=== PATIENT | female | born 1980 | race Caucasian/White ===

== ENCOUNTER 2019-03-10 10:08 | Inpatient (IN) ==
[2019-03-10 11:04] LABS: Basophils # 0.1 K/mcL (0.0-0.2); Basophils % 0.5 %; Eosinophils # 0.3 K/mcL (0.0-0.6); Eosinophils % 1.6 %; Hematocrit 35.5 % (35.3-44.9); Hemoglobin 11.7 g/dL (11.5-15.4); Immature Granulocytes % 4.5 % (0-4); Lymphocytes # 1.9 K/mcL (0.6-4.6); Lymphocytes % 11.5 %; Mean Corpuscular Hemoglobin 25.9 pg (28.0-33.3); Mean Corpuscular Volume 78.5 fL (83.0-100.0); Mean Platelet Volume 10.2 fL (9.4-12.4); Monocytes # 1.1 K/mcL (0.0-1.3); Monocytes % 6.6 %; Neutrophils # 12.1 K/mcL (1.6-8.9); Platelet Count 321 K/mcL (140-400); Red Blood Count 4.52 M/mcL (3.82-4.97); Red Cell Distribution Width 15.6 % (11.5-14.5); Segmented Neutrophils % 75.3 %; White Blood Count 16.1 K/mcL (4.3-11.1)
[2019-03-10 11:11] LABS: Amphetamine Screen,Urine Negative ng/mL (Cutoff=1000); Barbiturate Screen,Urine Negative ng/mL (Cutoff=200); Benzodiazepines Screen,Urine Negative ng/mL (Cutoff=200); Cannabinoid Screen,Urine Negative ng/mL (Cutoff = 50); Cocaine Screen,Urine Negative ng/mL (Cutoff= 300); Creatinine,Urine 56 mg/dL; Opiate Screen,Urine Negative ng/mL (Cutoff=300); Phencyclidine Screen,Urine Negative ng/mL (Cutoff=25); Protein/Creatinine Ratio,Urine 0.18 mg/mg (0.00-0.20)
[2019-03-10] MEDS ORDERED: Oxytocin 20 units/ LR 1000 mL 20 UNIT/1,000 ML BAG IVC ONE (11:43)
[2019-03-10] MEDS ORDERED: CeFAZolin Syr 3,000MG/30 ML 3,000 MG/30 ML SYRINGE IVPB ONE (11:43)
[2019-03-10] MEDS ORDERED: Ondansetron 4 MG/2 ML VIAL IVP PRN (11:43)
[2019-03-10] MEDS ORDERED: Naloxone 0.4 MG/ML INJ IVP PRN (11:43)
[2019-03-10] MEDS ORDERED: *HR* Nalbuphine 10 MG/ML AMPUL IVP PRN (11:43)
[2019-03-10] MEDS ORDERED: Metoclopramide 10 MG/2 ML VIAL IVP ONE (11:43)
[2019-03-10] MEDS ORDERED: Famotidine 20 MG/2 ML VIAL IVP ONE (11:43)
[2019-03-10] MEDS ORDERED: 0.9 % Sodium Chloride 1,000 ML IVC SCH (11:45)
[2019-03-10] MEDS ORDERED: Oxytocin 20 units/ LR 1000 mL 20 UNIT/1,000 ML BAG IVC SCH (11:45)
[2019-03-10] MEDS ORDERED: Ringers Solution, Lactated 1,000 ML IVC SCH (11:45)
[2019-03-10] MEDS ORDERED: FLU Vac QV 19-20 (6Month+)/PF 0.5 ML SYRINGE IM ONE (12:30)
[2019-03-10 12:39] LABS: Alanine Aminotransferase 31 Units/L (7-52); Aspartate Amino Transferase 25 Units/L (13-39); BUN/Creatinine Ratio 12 (6-26); Blood Urea Nitrogen 8 mg/dL (6-20); Lactate Dehydrogenase 154 Units/L (140-271); Uric Acid 4.3 mg/dL (2.3-7.6); eGFR For African Americans > 60 (> 60); eGFR For Non-African Americans > 60 (> 60)
--- NOTE | 2019-03-10 12:55 | Discharge Summary ---
Date of Encounter: 03/10/19 Time of Encounter: 14:50 - Discharge Diagnosis (1) Gestational [-induced] hypertension without significant proteinuria, complicating childbirth Priority: Primary Status: Acute Comments: 39yo at 37+1wks GA who presents with concern for PIH. The patient has a past surgical history of a 15cm myomectomy. The patient was UTD with PNC, seen by Dr. Mcfarland, and scheduled for a primary CS on 03/14/2019 at 0800, arrival time 0600. She was seen in the office with a subtle headache and mild range BP and therefore was sent to triage for r/o PreE v. gestational HTN. She is urnetly taking singulair and baby ASA. Does report active movement. Denies n/v/d. Denies VB/LOF/contraction(s). Denies fevers/chills. Mild PIERRE, poor po hydration, has not attempted PO tylenol. No hx of HTN. CEFM: R&R NST, no decels, +accels, mod variability TOCO: QUIET EXAM: ABDOMEN: SOFT, GRAVID, NO RUQ PAIN EXTREMITIES: MILD SWELLING BILATERALLY, APPROPRIATE FOR GA GENERAL: A&O X 3, CN II-XII INTACT PELVIC: DEFERRED, GBS SWAB COLLECTED PRE-E labs: NORMAL LABS UPC <0.3 VITALS: 130s-140s/70-80s normocardic A/P: 39yo at 37+1wks GA who presents for r/o PIH, diagnosed with gHTN 1. gHTN - normotensive - mild range BP - PIERRE resolved, denies RUQPain, improved lower extremity swelling - started on labetalol 100mg BID, PID labs negative - patient DC'd to home with PreE precaution(s) and 24hr urine - patient is to return to labor and delivery for BP check and 24hr urine - patient is scheduled for pLTCS with Dr. Mcfarland on Wednesday 03/14 at 0800 - very much desires delivery with Dr. Mcfarland, we discussed at length, the recommendation for patient to be delivered between 37-38wks GA for gHTN - it IS amendable to start the patient on Labetalol 100mg BID (was normo-mild range BP without) with precaution(S) and a 24hr urine to return on 03/12 - should patient have any change in baseline status or status, she is aware to RT L&D for likely delivery 2. FWB - RNST - good FM OF NOTE: THIS PATIENT WILL BE FOR CS DUE TO 15cm MYOMECTOMY WITH RECOMMENDATION FOR CS DELIVERY BETWEEN 37-38WKS GA WITH CONCERN FOR UTERINE RUPTURE 2/2 SEROSAL-ENDOMETRIAL INVOLVEMENT OF LATE UTERINE FIBROID. DISPO: DC to home with 24hr urine, PreE precaution(s), will have BP check with 24hr urine drop off on Monday 03/12. Scheduled for 03/14 at 0800. MD MARY - Discharge Medications Prescriptions: New Labetalol HCl 100 mg PO BID 30 Days #60 tablet No Action Ibuprofen [Motrin] 600 mg PO Q6HR PRN #20 tab PRN Reason: Pain Montelukast [Singulair] 10 mg PO DAILY Aspirin 81 mg PO DAILY Ferrous Sulfate 325 mg PO BID [id number]/Iron Fumarate/FA/Dss [ 19 Tablet] 1 tab PO DAILY Synthroid 125 mg PO DAILY Home Medications: Ibuprofen [Motrin] 600 mg PO Q6HR PRN #20 tab 05/09/18 [Rx] Aspirin 81 mg PO DAILY 03/10/19 [History] Ferrous Sulfate 325 mg PO BID 03/10/19 [History] Labetalol HCl 100 mg PO BID 30 Days #60 tablet 03/10/19 [Rx] Montelukast [Singulair] 10 mg PO DAILY 03/10/19 [History] [id number]/Iron Fumarate/FA/Dss [ 19 Tablet] 1 tab PO DAILY 03/10/19 [History] Synthroid 125 mg PO DAILY 03/10/19 [History] Allergies/Adverse Reactions: Allergy/AdvReac Type Severity Reaction Status Date / Time sumatriptan [From Imitrex] Allergy Headache Verified 03/10/19 11:13 Amoxicillin AdvReac Mild Hives Verified 03/10/19 11:12 Data Procedures and tests throughout hospitalization: Laboratory Tests 03/10/19 03/10/19 03/10/19 10:41 10:41 12:01 WBC 16.1 H RBC 4.52 Hgb 11.7 Hct 35.5 MCV 78.5 L MCH 25.9 L MCHC 33.0 RDW 15.6 H Plt Count 321 MPV 10.2 Immature Gran % 4.5 H Seg Neutrophils % 75.3 Lymphocytes % 11.5 Monocytes % 6.6 Eosinophils % 1.6 Basophils % 0.5 Neutrophils # 12.1 H Lymphocytes # 1.9 Monocytes # 1.1 Eosinophils # 0.3 Basophils # 0.1 BUN Creatinine Est GFR ( Amer) Est GFR (Non-Af Amer) BUN/Creatinine Ratio Uric Acid AST ALT Lactate Dehydrogenase Urine Creatinine 56 Protein/Creatinin Ratio 0.18 Urine Total Protein 10 Urine Opiates Screen Negative Ur Buprenorphine Scrn Negative Ur Barbiturates Screen Negative Ur Phencyclidine Scrn Negative Ur Amphetamines Screen Negative U Benzodiazepines Scrn Negative Urine Cocaine Screen Negative U Marijuana (THC) Screen Negative Ur Drug Screen Interp See Below Specimen Rejected Hemolyzed 03/10/19 12:15 WBC RBC Hgb Hct MCV MCH MCHC RDW Plt Count MPV Immature Gran % Seg Neutrophils % Lymphocytes % Monocytes % Eosinophils % Basophils % Neutrophils # Lymphocytes # Monocytes # Eosinophils # Basophils # BUN 8 Creatinine 0.69 Est GFR ( Amer) > 60 Est GFR (Non-Af Amer) > 60 BUN/Creatinine Ratio 12 Uric Acid 4.3 AST 25 ALT 31 Lactate Dehydrogenase 154 Urine Creatinine Protein/Creatinin Ratio Urine Total Protein Urine Opiates Screen Ur Buprenorphine Scrn Ur Barbiturates Screen Ur Phencyclidine Scrn Ur Amphetamines Screen U Benzodiazepines Scrn Urine Cocaine Screen U Marijuana (THC) Screen Ur Drug Screen Interp Specimen Rejected Labs on day of discharge: Labs from last 24 hours 03/10/19 03/10/19 03/10/19 12:15 12:01 10:41 WBC RBC Hgb Hct MCV MCH MCHC RDW Plt Count MPV Immature Gran % Seg Neutrophils % Lymphocytes % Monocytes % Eosinophils % Basophils % Neutrophils # Lymphocytes # Monocytes # Eosinophils # Basophils # BUN 8 Creatinine 0.69 Est GFR ( Amer) > 60 Est GFR (Non-Af Amer) > 60 BUN/Creatinine Ratio 12 Uric Acid 4.3 AST 25 ALT 31 Lactate Dehydrogenase 154 Urine Creatinine 56 Protein/Creatinin Ratio 0.18 Urine Total Protein 10 Urine Opiates Screen Negative Ur Buprenorphine Scrn Negative Ur Barbiturates Screen Negative Ur Phencyclidine Scrn Negative Ur Amphetamines Screen Negative U Benzodiazepines Scrn Negative Urine Cocaine Screen Negative U Marijuana (THC) Screen Negative Ur Drug Screen Interp See Below Specimen Rejected Hemolyzed 03/10/19 10:41 WBC 16.1 H RBC 4.52 Hgb 11.7 Hct 35.5 MCV 78.5 L MCH 25.9 L MCHC 33.0 RDW 15.6 H Plt Count 321 MPV 10.2 Immature Gran % 4.5 H Seg Neutrophils % 75.3 Lymphocytes % 11.5 Monocytes % 6.6 Eosinophils % 1.6 Basophils % 0.5 Neutrophils # 12.1 H Lymphocytes # 1.9 Monocytes # 1.1 Eosinophils # 0.3 Basophils # 0.1 BUN Creatinine Est GFR ( Amer) Est GFR (Non-Af Amer) BUN/Creatinine Ratio Uric Acid AST ALT Lactate Dehydrogenase Urine Creatinine Protein/Creatinin Ratio Urine Total Protein Urine Opiates Screen Ur Buprenorphine Scrn Ur Barbiturates Screen Ur Phencyclidine Scrn Ur Amphetamines Screen U Benzodiazepines Scrn Urine Cocaine Screen U Marijuana (THC) Screen Ur Drug Screen Interp Specimen Rejected Date of admission: 03/10/19 10:08 Primary care physician: Sharon Multani CNP - Patient Status Disposition: Home, Self-Care Condition: Good Functional capacity at discharge: independent ambulation Overall status at discharge: patient is back to baseline - Discharge Instructions Follow Up With: Sharon Multani CNP [Primary Care Provider] - Additional Instructions: LABOR AND DELIVERY DISCHARGE INSTRUCTIONS Signs and Symptoms to be Reported to your Doctor Immediately: * Sudden gush, continuous or intermittent lead of fluid from vagina (note the time of gush and color of fluid) * Onset of bright red vaginal bleeding with or without pain (if you had a vaginal exam during this visit you may notice some dark red spotting. This is normal.) * Contractions that are 5 minutes apart (from the beginning of one contraction to the beginning of the next) and last 45-60 seonds; contractions that you can no longer walk, talk or laugh through. * A change in the baby's activity. This could be an increase or decrease in activity. * Severe headache which does not go away with tylenol. * Sudden swelling in the face, hands, arms and/or legs. * Upper abdominal pain - sometimes associated with heartburn or nausea and is not relieved by Maalox, Mylanta or Tums. * Kick Counts __ One hour after a meal, lay down on one side in a quiet place. Count the number of time the baby moves during an hour. If less than 6 movements, notify your physician Diet: *Force fluids, 8 to 10 tall glasses of fluid per day - may include popsicles and jello *Limit caffeine - this includes chocolate, coffee, tea, any soft drink containing such as all kenyon, Adrian Yellow and Mountain Dew Hospital Course EQUAL OPPORTUNITY ASSISTANT Time Attestation: Total time spent providing and/or coordinating discharge services: Exam - Constitutional General appearance IM: A&O X 3 - Respiratory Respiratory exam: Present: CTAB - Cardiovascular Cardiovascular exam IM: Present: RRR - VTE Reasons for not Prescribing Prophylaxis: Treatment not Indicated - Low risk for VTE
[2019-03-10 13:07] VITALS: BP 153/89
== END 2019-03-10 15:01 | disposition home or self-care (01) | DRG 833 ==
LOC: 1NENULAB → OBSVTOIN 10:08
PROVIDERS: ADMIT Advanced Practice Midwife; ATTEND Advanced Practice Midwife

== ENCOUNTER 2019-03-14 05:59 | Inpatient (IN) ==
[2019-03-14] MEDS ORDERED: Ringers Solution, Lactated 1,000 ML ONE (06:57)
[2019-03-14] MEDS ORDERED: Famotidine 20 MG/2 ML VIAL IVP ONE (06:59)
[2019-03-14] MEDS ORDERED: CeFAZolin Syr 3,000MG/30 ML 3,000 MG/30 ML SYRINGE IVPB ONE (06:59)
[2019-03-14] MEDS ORDERED: Metoclopramide 10 MG/2 ML VIAL IVP ONE (06:59)
[2019-03-14] MEDS ORDERED: Ringers Solution, Lactated 1,000 ML IVC ONE (06:59)
[2019-03-14] MEDS ORDERED: Ringers Solution, Lactated 1,000 ML IVC SCH (07:00)
[2019-03-14] MEDS ORDERED: Oxytocin 20 units/ LR 1000 mL 20 UNIT/1,000 ML BAG IVC SCH ×2 (07:00→13:36)
[2019-03-14 07:24] LABS: Basophils % 0.3 %; Eosinophils # 0.2 K/mcL (0.0-0.6); Eosinophils % 1.5 %; Hematocrit 36.6 % (35.3-44.9); Hemoglobin 11.8 g/dL (11.5-15.4); Immature Granulocytes % 2.7 % (0-4); Lymphocytes % 13.2 %; Mean Corpuscular HGB Conc 32.2 g/dL (31.6-35.5); Mean Corpuscular Hemoglobin 25.4 pg (28.0-33.3); Mean Corpuscular Volume 78.7 fL (83.0-100.0); Mean Platelet Volume 9.8 fL (9.4-12.4); Monocytes # 0.9 K/mcL (0.0-1.3); Monocytes % 5.7 %; Neutrophils # 11.6 K/mcL (1.6-8.9); Platelet Count 325 K/mcL (140-400); Red Blood Count 4.65 M/mcL (3.82-4.97); Red Cell Distribution Width 15.8 % (11.5-14.5); Segmented Neutrophils % 76.6 %; White Blood Count 15.1 K/mcL (4.3-11.1)
--- NOTE | 2019-03-14 07:58 | Anesthesia Evaluation PreOp ---
Date of Encounter: 03/14/19 Time of Encounter: 07:53 - Past History Planned Operation: Primary Csection Cardiac History: Other (PIH) Pulmonary History: Denies Any Significant HX LEADLIGHTER History: Other (history of migraines) Other Medical History: Thyroid, GERD, Other (history of myomectomy January 2018) Anesthesia History: No Prior Anesthetic Complications, Past Anesthesia (m yomectomy january 2018) : Yes Alcohol Use: occasionally Medications and Allergies Ibuprofen [Motrin] 600 mg PO Q6HR PRN #20 tab 05/09/18 [Rx] Aspirin 81 mg PO DAILY 03/10/19 [History] Ferrous Sulfate 325 mg PO BID 03/10/19 [History] Labetalol HCl 100 mg PO BID 30 Days #60 tablet 03/10/19 [Rx] Montelukast [Singulair] 10 mg PO DAILY 03/10/19 [History] [id number]/Iron Fumarate/FA/Dss [ 19 Tablet] 1 tab PO DAILY 03/10/19 [History] Synthroid 125 mg PO DAILY 03/10/19 [History] Allergy/AdvReac Type Severity Reaction Status Date / Time sumatriptan [From Imitrex] Allergy Headache Verified 03/14/19 07:08 Amoxicillin AdvReac Mild Hives Verified 03/14/19 07:08 - Meds/Allergy Pre-op Review Medications Reviewed: Yes Allergies Reviewed: Yes Beta Blockers on Current Med List: No Anesthesia Results - Labs 03/14/19 06:59 Anesthesia Exam BP 144/83 P 110 R 16 T 98.9 Height: 5'7" Weight: 127kg NPO (# of Hours): 12 Pain Scale: 0 Pain Scale Used: Numeric (1 - 10) - HEENT Pupil (Motor): Pupils equal Mallampati: II Teeth: Normal Oral Opening: Greater than 3 - LEADLIGHTER LOC: Oriented LEADLIGHTER Motor: Normal RUE, Normal LUE, Normal RLE, Normal LLE, Normal Face LEADLIGHTER Sensory: Normal: RUE, LUE, RLE, LLE, Face - Cardiac Rhythm: Regular Murmur: None JVD: No Carotid Bruit: No - Pulmonary Breath Sounds: bilateral Clear Respiratory Effort: Symmetrical Anesthesia Assess/Plan ASA Score: 2 Level of consciousness: Cooperative, Oriented, Tranquil Anesthetic Plan: Spinal Autologous Blood: Yes Monitoring Plan: Standard Monitors Recovery Plan: PACU
--- NOTE | 2019-03-14 08:17 | OB/GYN History & Physical ---
Date of Encounter: 03/14/19 Time of Encounter: 08:15 Assessment and Plan (1) 37 weeks gestation of Current visit: Yes Status: Acute Since 37 weeks 5 days gestation with history of myomectomy 15 cm fibroid. Plan is to admit for primary section is recommended for maternal medicine. She is aware operative risks and signed appropriate consent. On arrival she reports irregular contractions no bleeding or leakage of fluid. (2) with history of uterine myomectomy Current visit: Yes Status: Acute (3) Hypothyroidism affecting in third trimester Current visit: Yes Status: Acute Patient is on Synthroid will continue this postoperatively. History of Present Illness Chief complaint: Here for primary secondary to h/o myomectomy HPI: Ms. Lyons is a 39 year old female female at 37w5d presents for primary secondary to h/o myomectomy of 15 cm fibroid. Preg also complicated by hypothyroidism. She reports irregular uc's, no vb or lof. Past Med Surg Social Fam HX - Past Medical History Source: patient, old records reviewed Medical history: other Additional medical history: hypothyroidism. migraines Psychiatric history: no psych history - Past Surgical History Surgical History: other Additional surgical history: hx of uterine fibroids. Myomectomy in 2018 - Social History Smoking Status: Never smoker Smokeless Tobacco Status: No Alcohol use: rarely, occasionally Obstetrical History - Pregnancies : 1 Medications and Allergies Ibuprofen [Motrin] 600 mg PO Q6HR PRN #20 tab 05/09/18 [Rx] Aspirin 81 mg PO DAILY 03/10/19 [History] Ferrous Sulfate 325 mg PO BID 03/10/19 [History] Labetalol HCl 100 mg PO BID 30 Days #60 tablet 03/10/19 [Rx] Montelukast [Singulair] 10 mg PO DAILY 03/10/19 [History] [id number]/Iron Fumarate/FA/Dss [ 19 Tablet] 1 tab PO DAILY 03/10/19 [History] Synthroid 125 mg PO DAILY 03/10/19 [History] Allergy/AdvReac Type Severity Reaction Status Date / Time sumatriptan [From Imitrex] Allergy Headache Verified 03/14/19 07:08 Amoxicillin AdvReac Mild Hives Verified 03/14/19 07:08 Exam - Constitutional Constitutional: well developed, well nourished - HEENT HEENT: EOMI, PERRL - Neck Neck exam: full ROM - Lungs Respiratory exam: CTAB - Cardiovascular Cardiovascular exam: RRR - Abdomen Abdomen: Present: bowel sounds normal, gravid - Extremities Extremities exam: full ROM Deep Tendon Reflex Grade: 2+ Normal Results Result Diagrams: 03/14/19 06:59 Abnormal lab results WBC 15.1 K/mcL (4.3-11.1) H 03/14/19 06:59 MCV 78.7 fL (83.0-100.0) L 03/14/19 06:59 MCH 25.4 pg (28.0-33.3) L 03/14/19 06:59 RDW 15.8 % (11.5-14.5) H 03/14/19 06:59 Neutrophils # 11.6 K/mcL (1.6-8.9) H 03/14/19 06:59 All other labs normal.
[2019-03-14 08:39] LABS: Amphetamine Screen,Urine Negative ng/mL (Cutoff=1000); Barbiturate Screen,Urine Negative ng/mL (Cutoff=200); Benzodiazepines Screen,Urine Negative ng/mL (Cutoff=200); Cannabinoid Screen,Urine Negative ng/mL (Cutoff = 50); Cocaine Screen,Urine Negative ng/mL (Cutoff= 300); Opiate Screen,Urine Negative ng/mL (Cutoff=300); Phencyclidine Screen,Urine Negative ng/mL (Cutoff=25)
[2019-03-14] MEDS ORDERED: Clindamycin 900 MG/50 ML 900 MG/50 ML IV.SOLN IVPB ONE (09:09)
[2019-03-14] MEDS ORDERED: *HR* Morphine Sulfate/PF 10 MG/10 ML AMPUL ONE (09:23)
[2019-03-14] MEDS ORDERED: *HR* Phenylephrine 10 MG/ML VIAL ONE (09:40)
[2019-03-14] MEDS ORDERED: *HR* Oxytocin 10 UNIT/ML VIAL IM ONE (09:54)
[2019-03-14] MEDS ORDERED: *HR* OxyCODONE Immed Rel 5 MG TABLET PO PRN (10:45)
[2019-03-14] MEDS ORDERED: *HR* HYDROmorphone (PF) 1 MG/ML SYRINGE IVP PRN (10:45)
[2019-03-14] MEDS ORDERED: *HR* Promethazine 25 MG/ML VIAL IVP PRN (10:45)
[2019-03-14] MEDS ORDERED: Ondansetron 4 MG/2 ML VIAL IVP ONE (10:45)
--- NOTE | 2019-03-14 10:46 | Anesthesia Procedures ---
Date of Encounter: 03/14/19 Time of Encounter: 09:31 Procedures: Anesthesia - Epidural/Spinal Patient ID/Chart reviewed: Yes Patient examined: Yes OB Eval: Gestational age: 39 OB Eval: : 1 OB Eval: Hx Para: 0 OB Eval: Contractions: Non-stressed pattern Consent Obtained: Yes Supplemental Oxygen: None/Room Air Site Prep: Aseptic Technique, Sterile prep and drape, Povidone-Iodine 1% Patient position: upright Local Anesthetic: Lidocaine 1% Amount of Local Anesthetic used: 3 Interspace Used: L3-L4 Loss of Resistance (ANA): No Blood: No CSF: Yes Paresthesia: No Spinal Needle Gauge: 25 Spinal Dose: Bupivicaine 0.75% 1.6ml, morphine 300mcg Procedure: Intrathecal dose administered 1st pass in upright position. CSF flow positive on aspiration. T4 level achieved. VSS throughout. Vitals + FHT's: See anesthesia record.
--- NOTE | 2019-03-14 10:49 | OB/GYN Procedure Note ---
Section - Date of procedure: 03/14/19 Preop diagnosis: other (h/o myomectomy, desires primary ) Post-op diagnosis: same Procedure: section, primary low transverse, other (Lysis of adhesion) Surgeon: Kashif Funes Blood Loss: 750 Was there an financial sales assistant present: No Flying Ii Instructor: Frank Mckenna Anesthesia Type: Spinal section complications: none Disposition: L&D Recovery Room Specimens: Placenta - (s) Infant A Delivery Date: 03/14/19 Delivery Time: 09:54 Presentation: vertex Position: unknown Gender: Male Viability: Viable Gram Weight: 3.865 kg at 1 minute: 9 at 5 minutes: 9 Shoulder Dystocia: not encountered Placenta: spontaneous - Narrative Narrative: Patient's 39-year-old female with history of prior myomectomy and upper uterine segment of the 15 cm fibroid had been advised by maternal medicine to deliver by primary between 37 and 38 weeks. She is now 37 weeks and 5 days. section. She is aware operative risks and signed appropriate consent. Description of procedure: Patient was taken operating room where spinal anesthesia was administered. She was prepped draped in usual sterile fashion bladder was drained clear urine with Sullivan catheter. Scalpel was used to make Pfannenstiel skin incision over patient's prior incision. This was sharply taken on the rectus fascia which was incised midline. Fascial incision was extended bluntly bilaterally. Plan is developed and rectus muscle rectus fascia superiorly and distally. Peritoneum was entered bluntly. There were adhesions between the peritoneum uterine fundus these were taken down sharply. Bladder blade was placed and bladder flap was developed and lower uterine segment. Scalpel was used to make a low transverse uterine incision. She did have an anterior placenta and the was delivered through the placenta. Cord was clamped cut and was handed nurse personnel were in attendance. weight was found to be 8 lbs. 8 oz. male with Apgars of 9 at 1 minute and 9 at 5 minutes. Placenta was delivered manually without difficulty. Uterine cavity was massaged of all residual tissue. Uterus closed the Vicryl running lock stitch. Second imbricating layer was placed over the first obtain hemostasis. Breasts adhesions taken left uterine fundus there was some oozing from these adhesions therefore running lock stitch was taken with adhesions of The uterus to obtain hemostasis. The omentum and rectosigmoid colon was adherent to the uterus posteriorly. These were thin stringy adhesions and a were taken down using Bovie as well as Metzenbaum scissors. Uterus was replaced and irrigation was performed,hemostasis was ensured. Fascia was closed with 0 loop PDS. Skin edges reapproximated with 4-0 Vicryl. Steri-Strips are applied and mellissa dressing was used. All sponge and instruments counts are correct patient was taken recovery in good condition.
--- NOTE | 2019-03-14 12:18 | Anesthesia Evaluation Post Op ---
Date of Encounter: 03/14/19 Time of Encounter: 12:18 - Vital Signs Vital Signs: BP 128/84 P 93 R 16 T 99.3 - Lungs Lungs: Clear Ascult./Percussion - Airway Airway: Non-obstructed - Cardiovascular Regular Rate - Mental Status Mental Status: Alert & Oriented, Answers Appropriately - Pain Pain Scale: 2 Pain Scale used: Numeric (1 - 10) - Nausea Vomiting Nausea Vomiting: Not Present - Hydration Hydration: NPO, Sullivan catheter - Discharge PostOp Status: Transfer Patient to floor
[2019-03-14] MEDS ORDERED: Ondansetron 4 MG/2 ML VIAL IVP PRN (13:36)
[2019-03-14] MEDS ORDERED: Simethicone 80 MG TAB.CHEW PO PRN (13:36)
[2019-03-14] MEDS ORDERED: Metoclopramide 10 MG/2 ML VIAL IVP PRN (13:36)
[2019-03-14] MEDS ORDERED: Sennosides 8.6 MG TABLET PO PRN (13:36)
[2019-03-14] MEDS ORDERED: Rho Immune Globulin 1,500 UNIT SYRINGE IM ONE (13:36)
[2019-03-14] MEDS: *HR* OxyCODONE/APAP 5/325 TABLET PO PRN ×2 (14:31→19:05)
[2019-03-14] MEDS: Ringers Solution, Lactated 1,000 ML IVC SCH (19:45)
[2019-03-14 20:34] LABS: Basophils % 0.2 %; Eosinophils # 0.1 K/mcL (0.0-0.6); Eosinophils % 0.6 %; Hematocrit 27.1 % (35.3-44.9); Immature Granulocytes % 2.1 % (0-4); Lymphocytes # 1.9 K/mcL (0.6-4.6); Lymphocytes % 10.5 %; Mean Corpuscular HGB Conc 33.2 g/dL (31.6-35.5); Mean Corpuscular Hemoglobin 26.2 pg (28.0-33.3); Monocytes % 5.5 %; Neutrophils # 14.3 K/mcL (1.6-8.9); Platelet Count 273 K/mcL (140-400); Red Blood Count 3.43 M/mcL (3.82-4.97); Red Cell Distribution Width 15.5 % (11.5-14.5); Segmented Neutrophils % 81.1 %; White Blood Count 17.7 K/mcL (4.3-11.1)
[2019-03-14] MEDS: Ibuprofen 600 MG TABLET PO PRN (21:32)
--- NOTE | 2019-03-14 22:46 | Event Note ---
Date of Encounter: 03/14/19 Time of Encounter: 21:00 Called to see patient because of tachycardia. Patient is asymptomatic states has a history of tachycardia was evaluated at the beginning and the by cardiology for this they just told her she had sinus tachycardia patient's pulse is running in the 1 teens to 120s we did do a stat CBC hemoglobin is 9 gave her 500 mL bolus. She is not complaining of lightheadedness dizziness. EKG obtained and the patient just showed sinus tachycardia. Patient will be observed if continues to tachycardia we will discuss possible cardiology evaluation in a.m.
[2019-03-15] MEDS: *HR* OxyCODONE/APAP 5/325 TABLET PO PRN ×5 (00:20→23:07)
[2019-03-15] MEDS: Ringers Solution, Lactated 1,000 ML IVC SCH ×4 (00:21→17:05)
[2019-03-15] MEDS: Ibuprofen 600 MG TABLET PO PRN ×3 (04:03→19:49)
[2019-03-15 07:11] LABS: Basophils % 0.2 %; Eosinophils # 0.2 K/mcL (0.0-0.6); Eosinophils % 0.9 %; Hemoglobin 8.2 g/dL (11.5-15.4); Immature Granulocytes % 1.9 % (0-4); Lymphocytes # 1.9 K/mcL (0.6-4.6); Lymphocytes % 10.5 %; Mean Corpuscular HGB Conc 32.8 g/dL (31.6-35.5); Mean Corpuscular Hemoglobin 25.9 pg (28.0-33.3); Mean Corpuscular Volume 79.1 fL (83.0-100.0); Mean Platelet Volume 10.2 fL (9.4-12.4); Monocytes # 1.3 K/mcL (0.0-1.3); Monocytes % 7.2 %; Platelet Count 272 K/mcL (140-400); Red Blood Count 3.16 M/mcL (3.82-4.97); Red Cell Distribution Width 15.5 % (11.5-14.5); Segmented Neutrophils % 79.3 %; White Blood Count 17.6 K/mcL (4.3-11.1)
--- NOTE | 2019-03-15 09:51 | OB/GYN Progress Note ---
Date of Encounter: 03/15/19 Time of Encounter: 09:49 - Assessment and Plan (1) Status post primary low transverse section Current Visit: Yes Status: Acute Meeting day 1 milestones Continue routine care Anticipate discharge home tomorrow Subjective - Subjective Principal diagnosis: s/p PLTCS Interval history: Feeling well. Out of bed without dizziness. Some abdominal discomfort-using binder. Cramping minimal, using ibuprofen and Percocet. every 2- 3 hours. Some nipple soreness. Voiding without difficulty. Passing flatus, no BM yet. Tolerating clear liquid diet. Patient reports: appetite normal, voiding normally, pain well controlled, ambulating normally : doing well, bottle feeding Objective - Vital Signs Latest vital signs: Vital Signs Temp Pulse Pulse Resp BP Pulse Ox 03/15/19 08:09 98.3 F 111 16 123/75 99 03/15/19 04:00 98.3 F 117 14 114/74 96 03/15/19 00:20 98.9 F 99 16 127/80 98 03/14/19 20:50 99.1 F 121 13 131/84 96 03/14/19 19:32 99.0 F 121 14 132/84 96 03/14/19 16:30 98.2 F 106 14 132/85 96 03/14/19 15:30 98.2 F 117 117 14 137/87 95 03/14/19 14:30 98.3 F 110 110 14 128/81 96 03/14/19 14:00 98.3 F 116 116 14 130/82 95 03/14/19 13:30 98.5 F 103 103 16 133/89 99 Intake and Output 03/14/19 03/15/19 03/15/19 23:59 07:59 15:59 Intake Total 1900 / 1900 Output Total 550 / 625 725 / 1325 600 / 1325 Balance -550 / -625 1175 / 575 -600 / 575 Intake: IV Fluids 1000 / 1000 Lactated Ringers 1,000 ML @ 125 1000 / 1000 mls/hr IVC .Q8H [facility] Rx#: [id number] Oral 900 / 900 Output: Urine 600 / 600 Catheter 550 / 625 725 / 725 Other: Weight 123.921 kg Patient Weight 03/15/19 23:59 Weight 123.921 kg - Exam Lungs: bilateral: normal Chest: Normal S1, Normal S2 Extremities: Present: normal Abdomen: Present: normal appearance Incision: Present: normal, dry, intact, dressed Uterus: Present: normal, firm Fundal Height: 2 (below and midline) - Labs Labs: Laboratory Results - last 24 hr 03/14/19 03/15/19 20:17 06:27 WBC 17.7 H 17.6 H RBC 3.43 L 3.16 L Hgb 9.0 L D 8.2 L Hct 27.1 L 25.0 L MCV 79.0 L 79.1 L MCH 26.2 L 25.9 L MCHC 33.2 32.8 RDW 15.5 H 15.5 H Plt Count 273 272 MPV 10.0 10.2 Immature Gran % 2.1 1.9 Seg Neutrophils % 81.1 79.3 Lymphocytes % 10.5 10.5 Monocytes % 5.5 7.2 Eosinophils % 0.6 0.9 Basophils % 0.2 0.2 Neutrophils # 14.3 H 14.0 H Lymphocytes # 1.9 1.9 Monocytes # 1.0 1.3 Eosinophils # 0.1 0.2 Basophils # 0.0 0.0
[2019-03-15] MEDS: Prenatal Vit/FA 1 EACH TABLET PO SCH (10:10)
--- NOTE | 2019-03-15 15:56 | Electrocardiograph Report ---
[address] [address] Test Date: 2019-03-14 Pat Name: Fela Lyons Department: 101 Room: [facility] Gender: F Compensation Administrator: : [id number] Requested By: Terry Birmingham Order Number: [id number] Reading MD: Karen Verdugo Measurements Intervals [place] Rate: 106 P: 56 [place]: 167 QRS: 26 QRSD: 83 T: 36 QT: 308 QTc: 370 Interpretive Statements SINUS TACHYCARDIA ABNORMAL RHYTHM ECG Electronically Signed On 03-15-2019 15:55:05 EDT by Karen Verdugo
[2019-03-16] MEDS: *HR* OxyCODONE/APAP 5/325 TABLET PO PRN ×3 (02:57→13:51)
[2019-03-16] MEDS: Ibuprofen 600 MG TABLET PO PRN ×2 (02:57→11:10)
[2019-03-16 08:36] VITALS: BP 123/77
[2019-03-16] MEDS: Prenatal Vit/FA 1 EACH TABLET PO SCH (08:56)
--- NOTE | 2019-03-16 11:28 | Discharge Summary ---
Date of Encounter: 03/16/19 Time of Encounter: 11:26 - Discharge Diagnosis (1) Status post delivery Priority: Primary Status: Acute Comments: Patient meeting day two milestones. Pain well-controlled with prescribed medications. Voiding without difficulty, tolerating regular diet, bleeding light. No bowel movement yet. Anticipate discharge today OARRS report reviewed (2) Acute blood loss as cause of postoperative anemia Priority: Secondary Status: Acute Comments: Patient is asymptomatic with Hgb of 8.2 Will send home with RX for BIDWM iron (3) Breast feeding status of mother Priority: Secondary Status: Acute Comments: support as needed. Will provide breast pump prescription if needed. (4) Hypothyroidism affecting Priority: Secondary Status: Acute Comments: Continue Synthroid and follow up as scheduled Qualifiers: Trimester: unspecified trimester Qualified Code(s): O99.280 - Endocrine, nutritional and metabolic diseases complicating , unspecified trimester; E03.9 - Hypothyroidism, unspecified (5) with history of uterine myomectomy Priority: Secondary Status: Acute Comments: Primary performed - Discharge Medications Prescriptions: New Breast Pump [BREAST PUMP] 1 each .ROUTE AD #1 each Docusate [Colace] 100 mg PO BID #60 capsule Ferrous Sulfate 325 mg PO BIDWM #60 tablet Ibuprofen [Motrin] 600 mg PO Q6HR PRN #60 tablet PRN Reason: Cramping OxyCODONE/APAP 5/325 [Percocet 5/325 MG] 1 each PO Q6H PRN 7 Days #28 tablet PRN Reason: Moderate pain 4-6 Continued Montelukast [Singulair] 10 mg PO DAILY Ferrous Sulfate 325 mg PO BID Synthroid 125 mg PO DAILY Discontinued Aspirin 81 mg PO DAILY Labetalol HCl 100 mg PO BID 30 Days #60 tablet No Action [id number]/Iron Fumarate/FA/Dss [ 19 Tablet] 1 tab PO DAILY Home Medications: Ferrous Sulfate 325 mg PO BID 03/10/19 [History] Montelukast [Singulair] 10 mg PO DAILY 03/10/19 [History] [id number]/Iron Fumarate/FA/Dss [ 19 Tablet] 1 tab PO DAILY 03/10/19 [History] Synthroid 125 mg PO DAILY 03/10/19 [History] Breast Pump [BREAST PUMP] 1 each .ROUTE AD #1 each 03/16/19 [Rx] Docusate [Colace] 100 mg PO BID #60 capsule 03/16/19 [Rx] Ferrous Sulfate 325 mg PO BIDWM #60 tablet 03/16/19 [Rx] Ibuprofen [Motrin] 600 mg PO Q6HR PRN #60 tablet 03/16/19 [Rx] OxyCODONE/APAP 5/325 [Percocet 5/325 MG] 1 each PO Q6H PRN 7 Days #28 tablet 03/16/19 [Rx] Allergies/Adverse Reactions: Allergy/AdvReac Type Severity Reaction Status Date / Time sumatriptan [From Imitrex] Allergy Headache Verified 03/14/19 07:08 Amoxicillin AdvReac Mild Hives Verified 03/14/19 07:08 Data Procedures and tests throughout hospitalization: Laboratory Tests 03/14/19 03/14/19 03/14/19 06:59 07:00 20:17 WBC 15.1 H 17.7 H RBC 4.65 3.43 L Hgb 11.8 9.0 L D Hct 36.6 27.1 L MCV 78.7 L 79.0 L MCH 25.4 L 26.2 L MCHC 32.2 33.2 RDW 15.8 H 15.5 H Plt Count 325 273 MPV 9.8 10.0 Immature Gran % 2.7 2.1 Seg Neutrophils % 76.6 81.1 Lymphocytes % 13.2 10.5 Monocytes % 5.7 5.5 Eosinophils % 1.5 0.6 Basophils % 0.3 0.2 Neutrophils # 11.6 H 14.3 H Lymphocytes # 2.0 1.9 Monocytes # 0.9 1.0 Eosinophils # 0.2 0.1 Basophils # 0.0 0.0 Urine Opiates Screen Negative Ur Buprenorphine Scrn Negative Ur Barbiturates Screen Negative Ur Phencyclidine Scrn Negative Ur Amphetamines Screen Negative U Benzodiazepines Scrn Negative Urine Cocaine Screen Negative U Marijuana (THC) Screen Negative Ur Drug Screen Interp See Below 03/15/19 06:27 WBC 17.6 H RBC 3.16 L Hgb 8.2 L Hct 25.0 L MCV 79.1 L MCH 25.9 L MCHC 32.8 RDW 15.5 H Plt Count 272 MPV 10.2 Immature Gran % 1.9 Seg Neutrophils % 79.3 Lymphocytes % 10.5 Monocytes % 7.2 Eosinophils % 0.9 Basophils % 0.2 Neutrophils # 14.0 H Lymphocytes # 1.9 Monocytes # 1.3 Eosinophils # 0.2 Basophils # 0.0 Urine Opiates Screen Ur Buprenorphine Scrn Ur Barbiturates Screen Ur Phencyclidine Scrn Ur Amphetamines Screen U Benzodiazepines Scrn Urine Cocaine Screen U Marijuana (THC) Screen Ur Drug Screen Interp Date of admission: 03/14/19 05:59 Primary care physician: Sharon Multani CNP Discharging clinician: Cass Sweet Anticipated date of discharge: 03/16/19 - Patient Status Disposition: Home, Self-Care Condition: Good Functional capacity at discharge: independent ambulation Overall status at discharge: patient is progressing back to baseline - Discharge Instructions Follow Up With: Sharon Multani CNP [Primary Care Provider] - Kashif Mcfarland MD [Partnered Physician] - - Diet and Activity Activity: resume usual activities as tolerated Diet: regular diet Hospital Course Reason for admission: section Delivery: section Episiotomy: none Laceration: none Other procedures: none complications: none Discharge diagnosis: IUP at term delivered [place] baby: male Hospital course: Date of procedure: 03/14/19 Preop diagnosis: other (h/o myomectomy, desires primary ) Post-op diagnosis: same Procedure: section, primary low transverse, other (Lysis of adhesion) Surgeon: Kashif Mcfarland Quantitated Blood Loss: 750 Was there an academic assistant present: No Glove Machine Operator: Frank Mckenna Anesthesia Type: Spinal section complications: none Disposition: L&D Recovery Room Specimens: Placenta - (s) A Infant Delivery Date: 03/14/19 Delivery Time: 09:54 Presentation: vertex Position: unknown Gender: Male Viability: Viable Gram Weight: 3.865 kg at 1 minute: 9 at 5 minutes: 9 Shoulder Dystocia: not encountered Placenta: spontaneous - Narrative Narrative: Patient's 39-year-old female with history of prior myomectomy and upper uterine segment of the 15 cm fibroid had been advised by maternal medicine to deliver by primary between 37 and 38 weeks. She is now 37 weeks and 5 days. section. She is aware operative risks and signed appropriate consent. Description of procedure: Patient was taken operating room where spinal anesthesia was administered. She was prepped draped in usual sterile fashion bladder was drained clear urine with Sullivan catheter. Scalpel was used to make Pfannenstiel skin incision over patient's prior incision. This was sharply taken on the rectus fascia which was incised midline. Fascial incision was extended bluntly bilaterally. Plan is developed and rectus muscle rectus fascia superiorly and distally. Peritoneum was entered bluntly. There were adhesions between the peritoneum uterine fundus these were taken down sharply. Bladder blade was placed and bladder flap was developed and lower uterine segment. Scalpel was used to make a low transverse uterine incision. She did have an anterior placenta and the was delivered through the placenta. Cord was clamped cut and was handed nurse personnel were in attendance. weight was found to be 8 lbs. 8 oz. male with Apgars of 9 at 1 minute and 9 at 5 minutes. Placenta was delivered manually without difficulty. Uterine cavity was massaged of all residual tissue. Uterus closed the Vicryl running lock stitch. Second imbricating layer was placed over the first obtain hemostasis. Breasts adhesions taken left uterine fundus there was some oozing from these adhesions therefore running lock stitch was taken with adhesions of The uterus to obtain hemostasis. The omentum and rectosigmoid colon was adherent to the uterus posteriorly. These were thin stringy adhesions and a were taken down using Bovie as well as Metzenbaum scissors. Uterus was replaced and irrigation was performed,hemostasis was ensured. Fascia was closed with 0 loop PDS. Skin edges reapproximated with 4-0 Vicryl. Steri-Strips are applied and liang dressing was used. All sponge and instruments counts are correct patient was taken recovery in good condition. Time Attestation: Total time spent providing and/or coordinating discharge services: Time Spent: Less than 30 minutes - VTE Documentation of Mechanical Device: Intermittent pneumatic compression device Exam - Constitutional Vitals: Temp Pulse Resp BP Pulse Ox 98.2 F 103 14 123/77 98 03/16/19 08:36 03/16/19 08:36 03/16/19 08:36 03/16/19 08:36 03/16/19 08:36 General appearance IM: A&O X 3, pleasant, no acute distress, answers questions appropriately - Respiratory Respiratory exam: Present: CTAB. Absent: respiratory distress - Cardiovascular Cardiovascular exam IM: Present: RRR, +S1, +S2. Absent: irregular rhythm - GI/Abdominal GI/Abdominal exam IM: normal bowel sounds, soft Incision: dressed (LIANG) - Rectal Rectal exam: deferred - External exam: normal external exam Uterine Tone: Firm Uterus Position: At Umbilicus, Midline - Extremities Exam Extremities exam IM: Present: full ROM, normal capillary refill, normal inspection. Absent: calf tenderness - Neurological Exam Neurological exam: alert, normal gait, oriented X3
[2019-03-16] MEDS ORDERED: FLU Vac QV 19-20 (6Month+)/PF 0.5 ML SYRINGE IM ONE (16:32)
== END 2019-03-16 17:15 | disposition home or self-care (01) | DRG 787 ==
LOC: 1NENULAB 05:59 → 1NENUOBS 13:36
PROVIDERS: ADMIT Obstetrics & Gynecology; ATTEND Obstetrics & Gynecology